=== PATIENT | female | born 1960 | race Caucasian/White ===

== ENCOUNTER → 2017-04-17 | Outpatient (CLI) | payer BC ==
[2017-04-17 11:10] VITALS: BMI 32.6
[2017-04-17 12:20] LABS: CH 31.2; CHCM 32.5; HCT 43.3 % (34.0-46.0); HGB 14.2 gm/dL (11.4-16.0); MCH 31.6 pg (25.0-35.0); MCHC 32.8 g/dL (31.0-37.0); MCV 96.2 fL (80.0-100.0); Mean Platelet Volume 6.8; RDW 12.6 % (11.5-15.5); WBC 3.8 k/uL (3.8-10.6)
[2017-04-17 12:24] VITALS: BP 144/73; PULSE 62; TEMP 98.4
[2017-04-17 12:43] LABS: INR 1.1 (<1.2); Partial Thromboplastin Time 25.5 sec (22.0-30.0); Prothrombin Time 10.7 sec (9.0-12.0)
[2017-04-17 13:07] LABS: ALT 45 U/L (9-52); AST 33 U/L (14-36); Alkaline Phosphatase 75 U/L (38-126); Anion Gap 8 mmol/L; Blood Urea Nitrogen 14 mg/dL (7-17); Calcium 9.6 mg/dL (8.4-10.2); Carbon Dioxide 30 mmol/L (22-30); Chloride 102 mmol/L (98-107); Cholesterol 209 mg/dL (<200); Glucose 94 mg/dL (74-99); HDL Cholesterol 79 mg/dL (40-60); Iron 109 ug/dL (37-170); Magnesium 1.9 mg/dL (1.6-2.3); Non-African American GFR(MDRD) >60 (>60 ml/min/1.73 sqM); Phosphorus 4.2 mg/dL (2.5-4.5); Potassium 4.5 mmol/L (3.5-5.1); Sodium 140 mmol/L (137-145); Total Bilirubin 0.7 mg/dL (0.2-1.3); Total Protein 7.1 g/dL (6.3-8.2)
[2017-04-17 13:16] LABS: % Iron Saturation 31.7 % (20-50); Total Iron Binding Capacity 344 ug/dL (265-497)
[2017-04-17 13:23] LABS: Hemoglobin A1C 5.3 % (4.2-6.1)
[2017-04-17 14:29] LABS: Vitamin B12 >1000 pg/mL (239-931)
[2017-04-22 17:42] LABS: Selenium 139 mcg/L (63-160)
--- NOTE | 2017-05-04 15:28 | P.PN ---
Progress Note - Text DATE OF SERVICE: 04/17/2017 CHIEF COMPLAINT: Follow up Alondra-en-Y gastric bypass. HISTORY OF PRESENT ILLNESS: Keila Lynn is a 55-year-old female who is status post Alondra-en-Y gastric bypass August 01, 2014. She presented weighing as much as 304 pound for a 5 foot frame. Her body mass was 53.1. Today she comes in weighing 187 pounds. She lost another 16 pounds in 2 years. She has lost 117 pounds in 3 years. Her body mass index now is reduced from 53.1 to 32.7. She has achieved 71% excess weight loss. Her gastroesophageal reflux disease is completely resolved. No reports of obstructive sleep apnea. She is not on any blood pressure medications. She eats at least 50 grams protein daily. She complains of excess skin on her legs and arms. Now she presents for further evaluation and management, particularly including right upper quadrant abdominal pain. She reports intermittent epigastric and right upper quadrant down pain. She also reports fatty food intolerance. She has known history of gallstones as well. She reports foul smelling flatulence. PAST MEDICAL HISTORY: 1. Resolved super morbid obesity. 2. Chronic sinus infection. 3. Gastroesophageal reflux disease. 4. Hiatal hernia. 5. Osteoarthritis. PAST SURGICAL HISTORY: 1. Hysterectomy. 2. EGD. 3. Colonoscopy. 4. Laparoscopic Alondra-en-Y gastric bypass. MEDICATIONS: 1. Multivitamins. 2. Thiamine. 3. Vitamin B12. 4. Vitamin D. 5. Calcium citrate. 6. Vitamin A. 7. Omeprazole. 8. Claritin. 9. Biotin. ALLERGIES: SULFA. REVIEW OF SYSTEMS: CONSTITUTIONAL: She presented weighing as much as 304 pound for a 5 foot frame. Her body mass was 53.1. Today she comes in weighing 187 pounds. She lost another 16 pounds in 2 years. She has lost 117 pounds in 3 years. Her body mass index now is reduced from 53.1 to 32.7. She has achieved 71% excess weight loss. RESPIRATORY: Resolved obstructive sleep apnea. No asthma. GASTROINTESTINAL: Resolved gastroesophageal reflux disease. No reports of dumping syndrome. No reports of dysphagia. MUSCULOSKELETAL: Resolved lower back pain, including bilateral knees. HEMATOLOGIC: Prior history of right lower extremity DVT. No easy bruising. HEENT: No troubles with vision or hearing. ENDOCRINE: No reports of diabetes or hypothyroidism. CARDIOVASCULAR: No reports of heart attack. Resolved hypertension. NEURO: No reports of headaches or seizure disorders. PSYCH: No reports depression or suicidal ideation. PHYSICAL EXAM: VITAL SIGNS: 5 feet 3-1/2 inches, 187 pounds. Body mass index 32.7. Vital Signs Temp 98.4 F 04/17/17 12:15 Pulse 62 04/17/17 12:15 Resp BP 144/73 04/17/17 12:15 Pulse Ox GENERAL: Well-developed, pleasant female in no acute distress. ABDOMEN: Soft, nontender without palpable incisional hernias. No panniculitis. MUSCULOSKELETAL: No clubbing, cyanosis, or edema. HEENT: No sclerae icterus. Extraocular is intact. Moist buccal mucosa. Hears conversational speech. NECK: Supple without lymphadenopathy. CHEST: Nonlabored respirations equal bilateral excursions. CARDIOVASCULAR: Regular rate. Regular rhythm. 2+ palpable pulses. NEURO: No focal or lateralizing signs. Cranial nerves II-12 intact. PSYCH: Appropriate affect. Alert and order person place and time. SKIN: Well perfused. Good skin turgor. LABS: Pending at this time. ASSESSMENT: 1. History of morbid obesity due to exogenous caloric intake. 2. Body mass index reduced from 53.1 down to 32.7. 3. Status post Alondra-en-Y gastric bypass. 4. Resolved obstructive sleep apnea. 5. Resolved hypertension. 6. Resolved dyslipidemia. 7. Osteoarthritis of the lower back, improved. 8. Osteoarthritis of bilateral knees, improved. 9. Prior history of iatrogenic protein malnutrition. 10. Gastroesophageal reflux disease, resolved. 11. Symptomatic gallstones. PLAN: 1. She is 2 years out. Recommend bariatric labs. 2. She has known history of gallstones. All of her symptoms are consistent with her gallstones. I recommended cholecystectomy. At this time she wishes to wait. 3. Separately, she has personal history of severe erosive esophagitis. She will continue omeprazole. 4. For her flatulence, I recommended decrease exposure to sulfa-containing foods. 5. Follow up in [place]. Laboratory Last Values WBC 3.8 k/uL (3.8-10.6) 04/17/17 11:56 RBC 4.50 m/uL (3.80-5.40) 04/17/17 11:56 Hgb 14.2 gm/dL (11.4-16.0) 04/17/17 11:56 Hct 43.3 % (34.0-46.0) 04/17/17 11:56 MCV 96.2 fL (80.0-100.0) 04/17/17 11:56 MCH 31.6 pg (25.0-35.0) 04/17/17 11:56 MCHC 32.8 g/dL (31.0-37.0) 04/17/17 11:56 RDW 12.6 % (11.5-15.5) 04/17/17 11:56 Plt Count 282 k/uL (150-450) 04/17/17 11:56 PT 10.7 sec (9.0-12.0) 04/17/17 11:56 INR 1.1 (<1.2) 04/17/17 11:56 APTT 25.5 sec (22.0-30.0) 04/17/17 11:56 Sodium 140 mmol/L (137-145) 04/17/17 11:56 Potassium 4.5 mmol/L (3.5-5.1) 04/17/17 11:56 Chloride 102 mmol/L (98-107) 04/17/17 11:56 Carbon Dioxide 30 mmol/L (22-30) 04/17/17 11:56 Anion Gap 8 mmol/L 04/17/17 11:56 BUN 14 mg/dL (7-17) 04/17/17 11:56 Creatinine 0.70 mg/dL (0.52-1.04) 04/17/17 11:56 Est GFR (MDRD) Af Amer >60 (>60 ml/min/1.73 sqM) 04/17/17 11:56 Est GFR (MDRD) Non-Af >60 (>60 ml/min/1.73 sqM) 04/17/17 11:56 Glucose 94 mg/dL (74-99) 04/17/17 11:[address] Glu mg/dL 105 mg/dL 04/17/17 11:56 Hemoglobin A1c 5.3 % (4.2-6.1) 04/17/17 11:56 Calcium 9.6 mg/dL (8.4-10.2) 04/17/17 11:56 Phosphorus 4.2 mg/dL (2.5-4.5) 04/17/17 11:56 Magnesium 1.9 mg/dL (1.6-2.3) 04/17/17 11:56 Iron 109 ug/dL (37-170) 04/17/17 11:56 TIBC 344 ug/dL (265-497) 04/17/17 11:56 % Saturation 31.7 % (20-50) 04/17/17 11:56 Ferritin 68.1 ng/mL (10.0-291.0) 04/17/17 11:56 Total Bilirubin 0.7 mg/dL (0.2-1.3) 04/17/17 11:56 AST 33 U/L (14-36) 04/17/17 11:56 ALT 45 U/L (9-52) 04/17/17 11:56 Alkaline Phosphatase 75 U/L (38-126) 04/17/17 11:56 Total Protein 7.1 g/dL (6.3-8.2) 04/17/17 11:56 Albumin 4.3 g/dL (3.5-5.0) 04/17/17 11:56 Prealbumin 19.0 mg/dL (18.0-42.0) 04/17/17 11:56 Triglycerides 94 mg/dL (<150) 04/17/17 11:56 Cholesterol 209 mg/dL (<200) H 04/17/17 11:56 LDL Cholesterol, Calc 111 mg/dL (0-99) H 04/17/17 11:56 HDL Cholesterol 79 mg/dL (40-60) H 04/17/17 11:56 Vitamin A 48 ug/dL (38-106) 04/17/17 11:56 Vitamin B1 77 ug/L (38-122) 04/17/17 11:56 Vitamin B12 >1000 pg/mL (239-931) H 04/17/17 11:56 Vitamin D 25-Hydroxy 85.0 ng/mL (30.0-100.0) 04/17/17 11:56 Folate >24.0 ng/mL 04/17/17 11:56 TSH 1.510 mIU/L (0.465-4.680) 04/17/17 11:56 PTH Intact 40.6 pg/mL (14.0-72.0) 04/17/17 11:56 Copper 1391 ug/L (810-1990) 04/17/17 11:56 Selenium 139 mcg/L (63-160) 04/17/17 11:56 Zinc 82 ug/dL (60-130) 04/17/17 11:56
== END ==
LOC: BARWHC3 09:58
PROVIDERS: ATTEND Surgery Plastic and Reconstructive Surgery
DX: Z09 Encounter for follow-up examination after completed treatment for conditions other than malignant neoplasm (principal); Z87.19 Personal history of other diseases of the digestive system; E66.01 Morbid (severe) obesity due to excess calories; M47.816 Spondylosis without myelopathy or radiculopathy, lumbar region; M17.0 Bilateral primary osteoarthritis of knee; E21.1 Secondary hyperparathyroidism, not elsewhere classified; E89.1 Postprocedural hypoinsulinemia; D50.9 Iron deficiency anemia, unspecified; K90.9 Intestinal malabsorption, unspecified; E44.0 Moderate protein-calorie malnutrition; E55.9 Vitamin D deficiency, unspecified; K74.1 Hepatic sclerosis; N19 Unspecified kidney failure; K50.90 Crohn's disease, unspecified, without complications; K80.20 Calculus of gallbladder without cholecystitis without obstruction; Z68.32 Body mass index [BMI] 32.0-32.9, adult; Z79.899 Other long term (current) drug therapy; Z88.2 Allergy status to sulfonamides
CPT/HCPCS: 80053; 80061; 82306; 82525; 82607; 82728; 82746; 83036; 83540; 83550; 83735; 83970; 84100; 84134; 84255; 84425; 84443; 84590; 84630; 85027; 85610; 85730; 97803; 99211

== ENCOUNTER 2021-06-14 08:45 | Day surgery (SDC) | payer OTHER ==
[2021-06-13 08:22] VITALS: BMI 32.1
--- NOTE | 2021-06-14 07:45 | P.GSHP ---
History of Present Illness H&P Date: 06/14/21 CHIEF COMPLAINT: GERD and colon screen HISTORY OF PRESENT ILLNESS: The patient is a 61-year-old female who presents with gastroesophageal reflux disease and need for colon screen. Upper and lower endoscopy were offered for further evaluation and management. PAST MEDICAL HISTORY: Please see list. PAST SURGICAL HISTORY: Please see list. MEDICATIONS: Please see list. ALLERGIES: Please see list. SOCIAL HISTORY: No illicit drug use FAMILY HISTORY: No reports of Crohn disease or ulcerative colitis. REVIEW OF ORGAN SYSTEMS: CONSTITUTIONAL: No reports of fevers or chills. GI: Denies any blood in stools or constipation. PHYSICAL EXAM: VITAL SIGNS: Stable GENERAL: Well-developed pleasant in no acute distress. HEENT: No scleral icterus. Extraocular movements grossly intact. Moist buccal mucosa. NECK: Supple without lymphadenopathy. CHEST: Unlabored respirations. Equal bilateral excursions. CARDIOVASCULAR: Regular rate and rhythm. Distal 2+ pulses. ABDOMEN: Soft, nondistended. MUSCULOSKELETAL: No clubbing, cyanosis, or edema. ASSESSMENT: 1. Gastroesophageal reflux disease 2. Colon screen. PLAN: 1. Recommend proceeding with an upper and lower endoscopy Past Medical History Past Medical History: Deep Vein Thrombosis (DVT), GERD/Reflux, Osteoarthritis (OA), Sleep Apnea/CPAP/BIPAP Additional Past Medical History / Comment(s): dvt rt leg, "mild" sleep apnea-no CPAP History of Any Multi-Drug Resistant Organisms: None Reported Past Surgical History: Bariatric Surgery, Hysterectomy Additional Past Surgical History / Comment(s): gabby-en-y gastric bypass, EGD w/dilitation x2, COLONOSCOPY Past Anesthesia/Blood Transfusion Reactions: Motion Sickness Smoking Status: Never smoker - Past Family History Father Family Medical History: Cancer Additional Family Medical History / Comment(s): skin cancer, Mother Family Medical History: Diabetes Mellitus Medications and Allergies Home Medications Medication Instructions Recorded Confirmed Type Multivitamins, Thera [Multivitamin] 1 each PO BID 06/08/14 06/13/21 History Biotin 5,000 mcg PO BID 10/19/14 06/13/21 History Thiamine [Vitamin B-1] 250 mg PO DAILY@1200 10/19/14 06/13/21 History Vitamin A 8,000 unit PO DAILY 10/19/14 06/13/21 History Ca/D3/Mag/Zinc/Dilcia/Venkat/Mgbor 1 wafer PO TID 04/20/15 06/13/21 History [Caltrate 600+D3+Min Chew Tab] Loratadine-Pseudoeph 5-120 mg 1 each PO Q12HR PRN 12/06/15 06/13/21 History [Claritin-D 12 Hour] Omeprazole 40 mg PO AC-BRKFST #90 cap 01/31/16 06/13/21 Rx Ascorbic Acid [Vitamin C] 500 mg PO DAILY 06/13/21 06/13/21 History Echinacea 760mg 760 mg PO DAILY 06/13/21 History Evening [place] Oil 500 mg PO DAILY 06/13/21 06/13/21 History L.acidoph,Paracasei, B.lactis 1 each PO BID 06/13/21 06/13/21 History [Probiotic] Magnesium 250 mg PO DAILY 06/13/21 06/13/21 History Simethicone [Gas-X] 125 mg PO TID PRN 06/13/21 06/13/21 History Allergies Allergy/AdvReac Type Severity Reaction Status Date / Time Sulfa (Sulfonamide Allergy Rash/Hives, Verified 06/13/21 08:09 Antibiotics) itching
[~2021-06-14 08:45] MED LIST: LACTATED RINGERS 1,000 ML IV SCH; LIDOCAINE 1% (10MG/ML) FOR IV START INTRADERMA PRN
[2021-06-14 09:11] VITALS: TEMP 98.1
[2021-06-14] MEDS ORDERED: LIDOCAINE 1% (10MG/ML) FOR IV START INTRADERMA ONE (09:17)
[2021-06-14] MEDS ORDERED: LIDOCAINE 1% INJ 10MG/ML (20 ML MDV) ONE (10:21)
[2021-06-14] MEDS ORDERED: fentaNYL (PF) 50 MCG/ML 2 ML AMP ONE (10:21)
[2021-06-14] MEDS ORDERED: MIDAZOLAM 2 MG/2 ML VIAL ONE (10:21)
[2021-06-14] MEDS ORDERED: PROPOFOL 10 MG/ML 20 ML VIAL IV ONE (10:21)
--- NOTE | 2021-06-14 10:59 | P.PCN ---
Date of Procedure: 06/14/21 Description of Procedure: PREOPERATIVE DIAGNOSIS: Personal history of colon polyps Family history malignant colon polyps Colonoscopy screening POSTOPERATIVE DIAGNOSIS: Hepatic flexure colon polyp Sigmoid diverticulosis OPERATION: Colonoscopy to the ileocecal valve and appendiceal orifice, cecum Colonoscopy with cold forceps biopsy SURGEON: Zayda Kemp MD. ANESTHESIA: MAC. INDICATIONS: The patient is an 61-year-old female who presents family history of malignant colon polyps and personal history of colon polyps. Last colonoscopy 5 years. Benefits and risks were described and informed consent was obtained. DESCRIPTION OF PROCEDURE: The patient had undergone Sutab prep. The patient had been brought into the operating room and laid in the left lateral decubitus position. After adequate intravenous sedation, the rectum was examined with 2% lidocaine jelly. The prostate was unremarkable. External hemorrhoids were encountered. The rectal tone was within normal limits. No lesions were palpated in the rectal vault. An Olympus colonoscope was advanced until the cecum, ileocecal valve and appendiceal orifice were clearly viewed. The prep was good. Sigmoid diverticulosis was encountered. Colonic polyps were found and removed. No evidence of focal colitis was found. Retroflexion of the scope demonstrated grade 2 internal hemorrhoids without active bleeding or inflammation. The colon was desufflated. The patient had tolerated the procedure well. Withdrawal time was over 6 minutes. FINDINGS: Aronchick preparation quality scale 2 (1-5) Internal hemorrhoids, grade 2 External hemorrhoids, grade 2. No arteriovenous malformations. Highly redundant sigmoid colon Sigmoid diverticulosis Removal of 1 polyp: - Cold forceps biopsy at hepatic flexure, 5 mm polyp. No focal colitis. RECOMMENDATIONS: Repeat colonoscopy 5 years, 2025 Plan - Discharge Summary Discharge Rx Participant: No New Discharge Prescriptions: Continue Multivitamins, Thera [Multivitamin (formulary)] 1 each PO BID Biotin 5,000 mcg PO BID Thiamine [Vitamin B-1] 250 mg PO DAILY@1200 Vitamin A 8,000 unit PO DAILY Ca/D3/Mag/Zinc/Dilcia/Venkat/Mgbor [Caltrate 600-D3-Min Chew Tab] 1 wafer PO TID Loratadine-Pseudoeph 5-120 mg [Claritin-D 12 Hour] 1 each PO Q12HR PRN PRN Reason: Allergy Symptoms Omeprazole 40 mg PO AC-BRKFST #90 cap L.acidoph,Paracasei, B.lactis [Probiotic] 1 each PO BID Magnesium 250 mg PO DAILY Evening [place] Oil 500 mg PO DAILY Echinacea 760mg 760 mg PO DAILY Ascorbic Acid [Vitamin C] 500 mg PO DAILY Simethicone [Gas-X] 125 mg PO TID PRN PRN Reason: GAS/BLOATING Discharge Medication List Multivitamins, Thera [Multivitamin (formulary)] 1 each PO BID 06/08/14 [History] Biotin 5,000 mcg PO BID 10/19/14 [History] Thiamine [Vitamin B-1] 250 mg PO DAILY@1200 10/19/14 [History] Vitamin A 8,000 unit PO DAILY 10/19/14 [History] Ca/D3/Mag/Zinc/Dilcia/Venkat/Mgbor [Caltrate 600-D3-Min Chew Tab] 1 wafer PO TID 04/20/15 [History] Loratadine-Pseudoeph 5-120 mg [Claritin-D 12 Hour] 1 each PO Q12HR PRN 12/06/15 [History] Omeprazole 40 mg PO AC-BRKFST #90 cap 01/31/16 [Rx] Ascorbic Acid [Vitamin C] 500 mg PO DAILY 06/13/21 [History] Echinacea 760mg 760 mg PO DAILY 06/13/21 [History] Evening [place] Oil 500 mg PO DAILY 06/13/21 [History] L.acidoph,Paracasei, B.lactis [Probiotic] 1 each PO BID 06/13/21 [History] Magnesium 250 mg PO DAILY 06/13/21 [History] Simethicone [Gas-X] 125 mg PO TID PRN 06/13/21 [History] Follow up Appointment(s)/Referral(s): Zayda Kemp MD [STAFF PHYSICIAN] - 07/03/21 Patient Instructions/Handouts: Colorectal Polyps (DC) Activity/Diet/Wound Care/Special Instructions: Repeat colonoscopy in 5 years, 2025 Discharge Disposition: HOME SELF-CARE
[2021-06-14 11:01] VITALS: RESP 14
--- NOTE | 2021-06-14 11:01 | P.PCN ---
Date of Procedure: 06/14/21 Description of Procedure: PREOPERATIVE DIAGNOSIS: Dysphagia. Presbyesophagus POSTOPERATIVE DIAGNOSIS: Dysphagia. Presbyesophagus Upper esophageal stenosis OPERATION: Esophagogastrojejunoscopy with rigid dilatation, 54 Fr for upper esophageal stenosis SURGEON: Zayda Kemp MD ANESTHESIA: MAC. INDICATIONS: The patient is a 61-year-old female who presents with a history of dysphagia. Benefits and risks of the procedure were described. Informed consent was obtained. DESCRIPTION: The patient was brought into the endoscopy suite and laid in the left lateral decubitus position. After a timeout was confirmed, the procedure was initiated. An Olympus gastroscope was passed along the posterior oropharynx down to the distal esophagus where the squamocolumnar junction was unremarkable. The gastric pouch was entered. Additional findings below. Esophageal dysmotility with upper esophageal stenosis was found as the adult gastroscope was 9.5 mm in size. A guidewire was placed through the scope. The scope was removed. A rigid dilator 54-[place] placed for dilation performed for 2 minutes. The patient tolerated the procedure well. FINDINGS: Esophageal dysmotility addressed with rigid dilator, 57-[place] No chronic gastrojejunal ulceration encountered. LA grade A erosive esophagitis Gastrojejunal anastomosis without stricture RECOMMENDATIONS: Upper endoscopy as needed
[2021-06-14 11:25] VITALS: BP 143/86; PULSE 69
== END 2021-06-14 11:34 | disposition home or self-care (01) ==
LOC: ORWHC2ENDO 08:45
PROVIDERS: ATTEND Surgery Plastic and Reconstructive Surgery
DX: Z12.11 Encounter for screening for malignant neoplasm of colon (principal); K57.30 Diverticulosis of large intestine without perforation or abscess without bleeding; K63.5 Polyp of colon; K22.2 Esophageal obstruction; K22.10 Ulcer of esophagus without bleeding; K22.89 Other specified disease of esophagus; Z86.010 Personal history of colon polyps; Z80.0 Family history of malignant neoplasm of digestive organs; M19.90 Unspecified osteoarthritis, unspecified site; Z86.718 Personal history of other venous thrombosis and embolism; G47.33 Obstructive sleep apnea (adult) (pediatric); Z98.84 Bariatric surgery status; Z90.710 Acquired absence of both cervix and uterus; Z98.890 Other specified postprocedural states; Z80.8 Family history of malignant neoplasm of other organs or systems; Z83.3 Family history of diabetes mellitus; Z79.899 Other long term (current) drug therapy; Z88.2 Allergy status to sulfonamides
CPT/HCPCS: 88305; 45380; 43248; J2250; J2001; J3010; J2704; 43249

== ENCOUNTER → 2021-06-25 | Outpatient (CLI) | payer OTHER ==
[2021-06-25 09:40] LABS: HCT 40.9 % (34.0-46.0); HGB 13.4 gm/dL (11.4-16.0); MCH 31.7 pg (25.0-35.0); MCHC 32.8 g/dL (31.0-37.0); MCV 96.7 fL (80.0-100.0); Mean Platelet Volume 7.8; Platelet Count 194 k/uL (150-450); RBC 4.23 m/uL (3.80-5.40); RDW 12.4 % (11.5-15.5); WBC 1.9 k/uL (3.8-10.6)
[2021-06-25 09:58] LABS: INR 0.9 (<1.2); Partial Thromboplastin Time 24.5 sec (22.0-30.0); Prothrombin Time 9.7 sec (9.0-12.0)
[2021-06-25 10:05] LABS: ALT 20 U/L (4-34); AST 34 U/L (14-36); African American GFR (CKD) >90 (>60 ml/min/1.73 sqM); Albumin 3.7 g/dL (3.5-5.0); Alkaline Phosphatase 64 U/L (38-126); Anion Gap 2 mmol/L; Blood Urea Nitrogen 12 mg/dL (7-17); Calcium 8.5 mg/dL (8.4-10.2); Carbon Dioxide 34 mmol/L (22-30); Chloride 103 mmol/L (98-107); Glucose 95 mg/dL (74-99); Magnesium 2.2 mg/dL (1.6-2.3); Non-African American GFR(CKD) >90 (>60 ml/min/1.73 sqM); Potassium 4.1 mmol/L (3.5-5.1); Sodium 139 mmol/L (137-145); Total Bilirubin 0.3 mg/dL (0.2-1.3); Total Protein 6.6 g/dL (6.3-8.2)
--- NOTE | 2021-06-25 12:33 | US ---
EXAMINATION TYPE: US gallbladder DATE OF EXAM: 06/25/2021 COMPARISON: 01/25/2016 CLINICAL HISTORY: 61-year-old female K81.1 Chronic cholecystitis. TECHNIQUE: Multiple sonographic images of the right upper quadrant are obtained. FINDINGS: EXAM MEASUREMENTS: Liver Length: 13.7 cm Gallbladder Wall: 0.1 cm CBD: 0.5 cm Right Kidney: 11.3 x 3.4 x 5.8 cm Pancreas: wnl Liver: wnl Gallbladder: No stones seen Evidence for sonographic Elise's sign: No CBD: wnl Right Kidney: No hydronephrosis or masses seen IMPRESSION: Unremarkable sonographic examination of the right upper quadrant. No gallstones or biliary ductal dil atation.
[2021-06-25 19:40] LABS: % Iron Saturation 10.83 (12.00-45.00); Chol/HDL Ratio 2.53 Ratio; Ferritin 62.7 ng/mL (10.0-291.0); Iron 44 ug/dL (50-170); LDL Cholesterol,Calculated 87.5 mg/dL (0.0-131.0); Prealbumin 13.8 mg/dL (18.0-42.0); Total Iron Binding Capacity 402 ug/dL (228-460)
[2021-06-25 19:54] LABS: Folate, Serum >20.00 ng/mL (4.40-31.00)
[2021-06-26 15:04] LABS: Zinc, Serum 61 ug/dL (60-130)
[2021-06-27 07:01] LABS: Vitamin A 43 ug/dL (38-106)
[2021-06-27 07:13] LABS: Vit B1(Thiamine) 112 ug/L (38-122)
== END | disposition home or self-care (01) ==
LOC: RADUSWWP 07:59
PROVIDERS: ATTEND Surgery Plastic and Reconstructive Surgery
DX: K81.1 Chronic cholecystitis (principal)
CPT/HCPCS: 76705; 80053; 80061; 82306; 82525; 82607; 82728; 82746; 83036; 83540; 83550; 83735; 83970; 84100; 84134; 84255; 84425; 84443; 84590; 84630; 85027; 85610; 85730